=== PATIENT | female | born 1960 | race Caucasian/White ===

== ENCOUNTER 2022-07-21 19:24 | Emergency (ER) | payer OTHER, SELFPAY ==
[2022-07-21] VITALS (8 sets, daily range): BP systolic 144–166; BP diastolic 77–91; PULSE 63–88; RESP 16–21; TEMP 36.3; O2SAT 97–99; BMI 19.9
--- NOTE | 2022-07-21 19:30 | DI.RAD.S_ITS ---
PROCEDURE: XR ACUTE ABDOMEN SERIES INDICATIONS: Chest pain, N/V/D TECHNIQUE: One view chest and two views of the abdomen were acquired. COMPARISON: None. FINDINGS: Surgical changes and devices: Cholecystectomy clips. Chest: Lungs are clear. Heart size is normal. No pleural effusions. No pneumoperitoneum. Abdomen: Nondilated colon with multiple air-fluid levels, and small bowel with multiple air-fluid levels as well, possibly representing gastroenteritis. No suspicious calcifications. Visualized solid organ contours appear normal. Bones: No suspicious bony lesions. IMPRESSION: 1. No evidence of acute bowel obstruction. No free air. 2. Findings may represent gastroenteritis. Dictated by: Brooks Porter M.D. on 07/21/2022 at 19:51 Approved by: Brooks Porter M.D. on 07/21/2022 at 19:52
--- NOTE | 2022-07-21 19:30 | ED.CHESTPAIN ---
HPI - Chest Pain General Chief Complaint: Abdominal Pain Stated Complaint: Chest pain, lightheaded, vomiting, not [id number] Time Seen by Provider: 07/21/22 19:30 History of Present Illness HPI narrative: 62-year-old female nondrinker with prior cholecystectomy presents with a chief complaint of a few days of nausea vomiting and epigastric pain. She states that on and Friday she vomited multiple times and had been able to keep anything down. Since then she has been keeping liquids down but has not had any solids because she is afraid it may trigger symptoms again. She is had no constipation or diarrhea. She denies any fever or chills. She denies dizziness, weakness or lightheadedness. She has no chest pain or shortness of breath. She denies dietary change, exposure to ill persons or recent antibiotics. Related Data Previous Rx's Medication Instructions Recorded ondansetron 4 mg disintegrating 4 mg PO TID-QID PRN nausea and 07/22/22 tablet vomiting #10 tabs pantoprazole 40 mg tablet,delayed 40 mg PO DAILY #30 tabs 07/22/22 release (Protonix) Allergies Allergy/AdvReac Type Severity Reaction Status Date / Time Aspirin Allergy Intermediate SWELLS Uncoded 09/03/17 13:11 THROAT Penicillin Allergy Intermediate SWELLS Uncoded 09/03/17 13:11 THROAT Review of Systems Review of Systems Narrative: GENERAL: Denies chills, fatigue, malaise, fever, sweats. HEENT: Denies sinus pain, ear pain, sore throat, difficulty swallowing, dizziness. RESPIRATORY: Denies dyspnea, cough, wheezing, hemoptysis, sputum. CARDIOVASCULAR: Denies chest pain, palpitations, orthopnea, edema, GASTROINTESTINAL: See HPI : Denies dysuria, frequency, incontinence, hematuria, urinary retention. MUSCULOSKELETAL: denies weakness, joint pain, or bony pain SKIN: Denies rash, skin lesions, or other NEUROLOGIC: Denies weakness, headache, numbness, change in speech, confusion, seizures, incoordination. PSYCHIATRIC: No concerning psychosocial issues. 12 point review of systems is negative except for those stated above Exam Narrative Exam Narrative: GENERAL: [62] year old patient appears stated age. Well-developed patient, in mild distress. HEAD: Atraumatic. Normocephalic. EYES: Dry mucous membranes Pupils equal round and reactive. Extraocular motions intact. No scleral icterus. No injection or drainage. ENT: Nose without bleeding, purulent drainage. Throat without erythema, tonsillar hypertrophy or exudate. Airway patent. NECK: Trachea midline. Non tender CARDIOVASCULAR: Regular rate and rhythm without murmurs, gallops, or rubs. RESPIRATORY: Clear to auscultation. Breath sounds equal bilaterally. No wheezes, rales, or rhonchi. GASTROINTESTINAL: Abdomen soft, mild epigastric tenderness, nondistended. EXTREMITIES: No edema or joint tenderness. BACK: Nontender without deformity or crepitance. No flank tenderness. NEURO: AOx3. SKIN: No rash or erythema of visible areas Initial Vital Signs Initial Vital Signs: Vital Signs Temperature 97.4 F L 07/21/22 19:55 Pulse Rate 88 07/21/22 19:55 Respiratory Rate 16 07/21/22 19:55 Blood Pressure 155/91 H 07/21/22 19:55 Pulse Oximetry 99 07/21/22 19:55 Oxygen Delivery Method 07/21/22 19:55 Course Orders Ordered: ED Orders 07/21/22 21:09 COVID19 -Nasal RAPID/Pre-Proc Stat Complete Blood Count AUTO DIFF Stat Comprehensive Metabolic Panel Stat Lipase Stat MAG [Magnesium] Stat NT-proBNP (BNP-Adult 18+) Stat Procalcitonin Stat Troponin & CK Cardiac Panel Stat 07/22/22 00:20 BMP [Basic Metabolic Panel] Stat Discontinued Medications Aspirin (Aspirin 81 Mg Chew Tab) 324 mg PO NOW ONE Stop: 07/21/22 19:31 Last Admin: 07/21/22 21:14 Dose: Not Given Documented By: NICOLE Al Hydrox/Mg Hydrox/Simethicone 20 ml/ Lidocaine HCl 15 ml 0 ml PO NOW ONE Stop: 07/21/22 21:25 Last Admin: 07/21/22 21:32 Dose: 35 ml Documented By: MADHU Sodium Chloride (Normal Saline 0.9%) 1,000 mls @ 150 mls/hr IV CONT LAURY Last Infusion: 07/22/22 00:46 Dose: 0 mls/hr Documented By: Admin: 07/21/22 21:13 Dose: 150 mls/hr Documented By: NICOLE Lactated Ringer's (Lactated Ringers) 1,000 mls @ 1,000 mls/hr IV BOLUS ONE Stop: 07/21/22 22:53 Last Infusion: 07/22/22 00:46 Dose: 0 mls/hr Documented By: Admin: 07/21/22 22:02 Dose: 1,000 mls/hr Documented By: MADHU Ondansetron HCl (Ondansetron 4 Mg/2 Ml Inj) 4 mg IV NOW ONE Stop: 07/21/22 19:31 Last Admin: 07/21/22 21:13 Dose: 4 mg Documented By: NICOLE Ondansetron HCl (Ondansetron 4 Mg Odt Prepack) 1 bottle MISC SEEINSTR ONE Stop: 07/22/22 01:10 Last Admin: 07/22/22 01:24 Dose: 1 bottle Documented By: CRISTIAN Pantoprazole Sodium (Pantoprazole 40 Mg Vial) 40 mg IV NOW ONE Stop: 07/21/22 21:25 Last Admin: 07/21/22 21:32 Dose: 40 mg Documented By: MADHU Potassium Chloride (Potassium Chloride 20 Meq/15 Ml Udc) 40 meq PO NOW ONE Stop: 07/21/22 21:54 Last Admin: 07/21/22 22:01 Dose: 40 meq Documented By: MADHU Potassium Chloride (Potassium Chloride 20 Meq Tab) 40 meq PO NOW ONE Stop: 07/21/22 21:54 Last Admin: 07/21/22 22:01 Dose: 40 meq Documented By: MADHU Vital Signs Vital signs: Vital Signs - 8 hr 07/21/22 21:30 07/21/22 21:30 07/21/22 22:00 Pulse Rate 65 Respiratory Rate Blood Pressure 149/77 H 158/78 H Pulse Oximetry 98 Oxygen Delivery Method Room Air 07/21/22 22:00 07/21/22 22:30 07/21/22 22:30 Pulse Rate 63 63 Respiratory Rate 21 17 Blood Pressure 160/83 H Pulse Oximetry 99 99 Oxygen Delivery Method 07/21/22 23:00 07/21/22 23:00 07/21/22 23:30 Pulse Rate 64 Respiratory Rate 17 Blood Pressure 154/79 H 144/80 H Pulse Oximetry 98 Oxygen Delivery Method 07/21/22 23:30 07/22/22 00:00 07/22/22 00:00 Pulse Rate 66 64 Respiratory Rate 19 27 H Blood Pressure 135/78 Pulse Oximetry 97 97 Oxygen Delivery Method 07/22/22 00:30 07/22/22 00:30 07/22/22 01:00 Pulse Rate 63 Respiratory Rate 20 Blood Pressure 133/77 137/78 Pulse Oximetry 97 Oxygen Delivery Method 07/22/22 01:00 07/22/22 01:21 07/22/22 01:21 Pulse Rate 63 64 Respiratory Rate 21 24 Blood Pressure 153/77 H Pulse Oximetry 97 97 Oxygen Delivery Method MDM - Chest Pain Lab Data 07/21/22 21:09 07/21/22 21:09 Labs: Lab Results 07/21/22 07/21/22 07/21/22 Range/Units 21:09 21:09 21:09 WBC 15.3 H (4.5-11.0) X10^3/uL RBC 4.54 (4.0-5.2) X10^6/uL Hgb 14.1 (12.0-16.0) g/dL Hct 42.8 (36-46) % MCV 94.2 (80-100) fL MCH 31.0 (26-34) PG MCHC 32.9 (30-36) % RDW 15.9 H (11.6-14.8) % Plt Count 495 H (150-400) X10^3/uL Neut % (Auto) 74.6 (50-75) % Lymph % (Auto) 16.3 L (25-40) % [place] % (Auto) 8.0 (3-14) % Eos % (Auto) 0.7 L (2-4) % Baso % (Auto) 0.4 (0-2) % Neut # (Auto) 52023 H (3713-8002) /uL Lymph # (Auto) 2500 (0333-6994) /uL [place] # (Auto) 1200 H (0-900) /uL Eos # (Auto) 100 (0-450) /uL Baso # (Auto) 100 (0-100) /uL Sodium 131 L (137-145) mmol/L Potassium 2.7 L* (3.4-5.1) mmol/L Chloride 89 L (98-107) mmol/L Carbon Dioxide 33 H (22-32) mmol/L BUN 17 (7-17) mg/dL Creatinine 0.67 (0.52-1.04) mg/dL Estimated GFR > 60 (>60) mL/min BUN/Creatinine Ratio 25.4 H (6-22) Glucose 102 (80-110) mg/dL Calcium 9.4 (8.4-10.2) mg/dL Magnesium (1.6-2.3) mg/dL Total Bilirubin 0.5 (0.2-1.3) mg/dL AST 18 (14-36) IU/L ALT 16 (<35) IU/L Alkaline Phosphatase 92 (38-126) U/L Total Creatine Kinase < 20 L (30-135) U/L CK-MB (CK-2) TNP CK-MB (CK-2) Rel Index TNP Troponin I < 0.012 (0.01-0.034) ng/mL NT-Pro-B Natriuret Pep 75 (<125) pg/mL Total Protein 6.8 (6.3-8.2) g/dL Albumin 3.7 (3.5-5.0) g/dL Globulin 3.1 (1.7-4.1) g/dL Albumin/Globulin Ratio 1.2 (1.0-2.8) Lipase 79 (23-300) U/L Procalcitonin 0.09 (<0.5) ng/mL SARS-CoV-2 (PCR) Negative (Negative) Influenza A (RT-PCR) Cancelled Influenza B (RT-PCR) Cancelled RSV (PCR) Cancelled 07/21/22 07/22/22 Range/Units 21:09 00:20 WBC (4.5-11.0) X10^3/uL RBC (4.0-5.2) X10^6/uL Hgb (12.0-16.0) g/dL Hct (36-46) % MCV (80-100) fL MCH (26-34) PG MCHC (30-36) % RDW (11.6-14.8) % Plt Count (150-400) X10^3/uL Neut % (Auto) (50-75) % Lymph % (Auto) (25-40) % [place] % (Auto) (3-14) % Eos % (Auto) (2-4) % Baso % (Auto) (0-2) % Neut # (Auto) (3086-7154) /uL Lymph # (Auto) (1196-4384) /uL [place] # (Auto) (0-900) /uL Eos # (Auto) (0-450) /uL Baso # (Auto) (0-100) /uL Sodium 131 L (137-145) mmol/L Potassium 3.8 (3.4-5.1) mmol/L Chloride 97 L (98-107) mmol/L Carbon Dioxide 30 (22-32) mmol/L BUN 15 (7-17) mg/dL Creatinine 0.59 (0.52-1.04) mg/dL Estimated GFR > 60 (>60) mL/min BUN/Creatinine Ratio 25.4 H (6-22) Glucose 90 (80-110) mg/dL Calcium 8.6 (8.4-10.2) mg/dL Magnesium 1.6 (1.6-2.3) mg/dL Total Bilirubin (0.2-1.3) mg/dL AST (14-36) IU/L ALT (<35) IU/L Alkaline Phosphatase (38-126) U/L Total Creatine Kinase (30-135) U/L CK-MB (CK-2) CK-MB (CK-2) Rel Index Troponin I (0.01-0.034) ng/mL NT-Pro-B Natriuret Pep (<125) pg/mL Total Protein (6.3-8.2) g/dL Albumin (3.5-5.0) g/dL Globulin (1.7-4.1) g/dL Albumin/Globulin Ratio (1.0-2.8) Lipase (23-300) U/L Procalcitonin (<0.5) ng/mL SARS-CoV-2 (PCR) (Negative) Influenza A (RT-PCR) Influenza B (RT-PCR) RSV (PCR) MDM Narrative Medical decision making narrative: CC: 62-year-old with epigastric pain, nausea and vomiting Complicating co-morbidities: Age, prior cholecystectomy Data collected from: Patient Medical records reviewed: Prior notes reviewed in our EMR Differential considered, but not limited to: Gastroenteritis, pancreatitis, bowel obstruction versus other Exam documented above, pertinent findings include: Dry mucous membranes, poor skin turgor and some epigastric pain Lab Test results independently reviewed as above. Pertinent findings: Potassium 2.7, improves significantly after potassium supplementation and lactated Ringer's Independently reviewed EKG as above Imaging studies independently reviewed: No evidence of bowel obstruction Treatments: Fluids, Protonix, Zofran Re-evaluations: Significant improvement after above-stated therapies Discussion: Patient with abdominal discomfort, nausea, vomiting and generalized weakness for the past few days. Vital signs are stable, labs do demonstrate a hypokalemia that improves after therapy. Imaging is unremarkable, no indication for any further evaluation or intervention. She has significant improvement with above-stated therapies. Multiple diagnoses such as pancreatitis, biliary obstruction, bowel obstruction all considered but thought unlikely given history, physical, labs and response to therapies. Disposition: see below, along with detailed discharge instructions that have been reviewed with patient as well as indications for ED re-evaluation and additional outpatient follow up Discharge Plan Departure Patient Disposition: Home Clinical Impression: Vomiting, Acute dehydration Instructions: DI for Dehydration -- Adult, DI for Vomiting -- Adult Activity Restrictions/Additional Instructions: *You have been diagnosed with [abdominal pain, dehydration and vomiting] * As we discussed your history and physical exam as well as labs and imaging are very reassuring. There is no evidence of any severe diagnoses that would require a specific or immediate intervention. *What to do: *Please continue to take your regular medications as directed. [x ] New medication prescriptions sent to your pharmacy: [ ] *Please follow up with your primary care provider in 2-3 days, call for an appointment. Let them know you were seen in the Emergency Department and that we ask that you be seen in follow up. We will electronically transmit a record of today's note if your PCP is in our system *Please consider a clear liquid diet for the next 24-48 hours and then slowly advance to regular as tolerated. Also, try to avoid alcohol, nicotine, caffeine, spicy, acidic or fatty foods as this may worsen your symptoms *If you do not have a primary care provider please contact the [facility] Resource line at [phone]. They will ask some questions about your medical history and help get you set up with a doctor in the community. *Return to Emergency Department if you should have any new, worsening or concerning symptoms, such as [fever greater than 101 F, shaking chills, worsening pain, persistent vomiting or other bothersome symptoms] Prescriptions: New pantoprazole [Protonix] 40 mg tablet,delayed release (DR/EC) 40 mg PO DAILY Qty: 30 0RF ondansetron 4 mg tablet,disintegrating 4 mg PO TID-QID PRN (Reason: nausea and vomiting) Qty: 10 0RF Stand Alone Forms: Patient Portal/API
[2022-07-21] MEDS: ONDANSETRON 4 MG/2 ML INJ IV (21:13)
[2022-07-21] MEDS: SODIUM CHLORIDE 0.9% 1,000 ML 150 ML IV (21:13)
[2022-07-21 21:29] LABS: Alanine Aminotransferase 16 IU/L (<35); Albumin 3.7 g/dL (3.5-5.0); Albumin Globulin Ratio 1.2 (1.0-2.8); Alkaline Phosphatase 92 U/L (38-126); Aspartate Aminotransferase 18 IU/L (14-36); BUN Creatinine Ratio 25.4 (6-22); Bilirubin Total 0.5 mg/dL (0.2-1.3); Blood Urea Nitrogen 17 mg/dL (7-17); Calcium 9.4 mg/dL (8.4-10.2); Carbon Dioxide 33 mmol/L (22-32); Chloride 89 mmol/L (98-107); Creatine Kinase < 20 U/L (30-135); Estimated Glomerular Filt Rate > 60 mL/min (>60); Globulin 3.1 g/dL (1.7-4.1); Glucose 102 mg/dL (80-110); HEMOLYSIS < 15 (0-50); Lipase 79 U/L (23-300); Sodium 131 mmol/L (137-145); Total Protein 6.8 g/dL (6.3-8.2)
[2022-07-21] MEDS: MAG HYDROX/ALUMINUM/SIMETH SUS 20 ML, LIDOCAINE VISCOUS 2% 15 ML PO (21:32)
[2022-07-21] MEDS: PANTOPRAZOLE 40 MG VIAL IV (21:32)
[2022-07-21 21:40] LABS: Potassium 2.7 mmol/L (3.4-5.1)
[2022-07-21 21:41] LABS: NT-proBNP (BNP-Adult 18+) 75 pg/mL (<125); Troponin I < 0.012 ng/mL (0.01-0.034)
[2022-07-21 21:44] LABS: Add Manual Diff / Slide Review NO; Basophils Absolute Auto 100 /uL (0-100); Basophils Percent Auto 0.4 % (0-2); Eosinophils Absolute Auto 100 /uL (0-450); Eosinophils Percent Auto 0.7 % (2-4); Hematocrit 42.8 % (36-46); Hemoglobin 14.1 g/dL (12.0-16.0); Lymphocytes Absolute Auto 2500 /uL (1100-4500); Lymphocytes Percent Auto 16.3 % (25-40); Mean Corpuscular HGB Conc 32.9 % (30-36); Mean Corpuscular Volume 94.2 fL (80-100); Monocytes Absolute Auto 1200 /uL (0-900); Neutrophils Absolute Auto 11400 /uL (1500-7000); Neutrophils Percent Auto 74.6 % (50-75); Platelet Count 495 X10^3/uL (150-400); Red Blood Cell Count 4.54 X10^6/uL (4.0-5.2); Red Cell Distribution Width 15.9 % (11.6-14.8); White Blood Cell Count 15.3 X10^3/uL (4.5-11.0)
[2022-07-21 21:46] LABS: Procalcitonin 0.09 ng/mL (<0.5)
[2022-07-21 22:01] LABS: COVID19 -Nasal RAPID Negative (Negative)
[2022-07-21] MEDS: POTASSIUM CHLORIDE 20 MEQ/15 ML UDC 40 MEQ PO (22:01)
[2022-07-21] MEDS: POTASSIUM CHLORIDE 20 MEQ TAB 40 MEQ PO (22:01)
[2022-07-21] MEDS: LACTATED RINGERS 1,000 ML 1000 ML IV (22:02)
[2022-07-21 22:06] LABS: Magnesium 1.6 mg/dL (1.6-2.3)
[2022-07-22] VITALS: BP 135/78; PULSE 64; RESP 27; O2SAT 97
[2022-07-22 00:30] VITALS: BP 133/77; PULSE 63; RESP 20; O2SAT 97
[2022-07-22 00:41] LABS: BUN Creatinine Ratio 25.4 (6-22); Blood Urea Nitrogen 15 mg/dL (7-17); Calcium 8.6 mg/dL (8.4-10.2); Carbon Dioxide 30 mmol/L (22-32); Chloride 97 mmol/L (98-107); Estimated Glomerular Filt Rate > 60 mL/min (>60); Glucose 90 mg/dL (80-110); HEMOLYSIS < 15 (0-50); Potassium 3.8 mmol/L (3.4-5.1); Sodium 131 mmol/L (137-145)
[2022-07-22 01:00] VITALS: BP 137/78; PULSE 63; RESP 21; O2SAT 97
[2022-07-22 01:21] VITALS: BP 153/77; PULSE 64; RESP 24; O2SAT 97
[2022-07-22] MEDS: ONDANSETRON 4 MG ODT PREPACK 1 BOTTLE MISC (01:24)
== END 2022-07-22 01:33 | disposition home or self-care (01) ==
PROVIDERS: Emergency Provider Emergency Medicine
DX: R11.10 Vomiting, unspecified (principal); E86.0 Dehydration; Z20.822 Contact with and (suspected) exposure to COVID-19
CPT/HCPCS: 36415; 74022; 80048; 80053; 82550; 83690; 83735; 83880; 84145; 84484; 85025; 87635; 96361; 96374; 96375; 99284; C9803; C9113; J2405